=== PATIENT | male | born 1945 | race Caucasian/White ===

== ENCOUNTER 2018-08-01 09:45 | Outpatient (REF) | payer OTHER, SELFPAY ==
[2018-08-01 21:10] LABS: HCT 39.6 % (40.0-50.0); HGB 12.9 g/dL (13.5-17.5)
[2018-08-01 21:47] LABS: Iron 51 ug/dL (50-175); Total Iron Binding Capacity 272 ug/dL (250-450); Transferrin Sat 19 % (20-55)
[2018-08-01 21:58] LABS: Cholesterol 132 mg/dL (50-200); Ferritin 47 ng/mL (8-388); Glucose 103 mg/dL (70-100); HDL Cholesterol 45 mg/dL (40-60); LDL CHOLESTEROL 78 mg/dL (<100); Triglyceride 50 mg/dL (30-150)
== END 2018-08-01 10:05 ==
LOC: NCHCN 09:45
PROVIDERS: PCP Internal Medicine; Visit Provider Internal Medicine
DX: I25.10 Atherosclerotic heart disease of native coronary artery without angina pectoris (principal); D50.9 Iron deficiency anemia, unspecified; I10 Essential (primary) hypertension; Z95.2 Presence of prosthetic heart valve; Z79.01 Long term (current) use of anticoagulants
CPT/HCPCS: 80061; 82947; 83721; 82728; 83540; 83550; 85014; 85018

== ENCOUNTER 2018-12-11 16:15 | Outpatient (REF) | payer OTHER, SELFPAY ==
[2018-12-11 21:28] LABS: Iron 49 ug/dL (50-175)
== END 2018-12-11 16:35 ==
LOC: NCHCN 16:15
PROVIDERS: PCP Internal Medicine; Visit Provider Family Medicine
DX: D50.9 Iron deficiency anemia, unspecified (principal)
CPT/HCPCS: 83540

== ENCOUNTER 2019-03-09 15:02 | Outpatient (REF) | payer OTHER, SELFPAY ==
[2019-03-09 22:10] LABS: Anion Gap 7.1 mmol/L (3-11); BUN 25 mg/dL (7-18); CO2 24.9 mmol/L (21.0-32.0); Calcium 11.3 mg/dL (8.5-10.1); Chloride 106 mmol/L (98-107); Estimated GFR 54.26 (mL/min/1.73m2); Glucose 104 mg/dL (70-100); Potassium 4.1 mmol/L (3.5-5.1); Sodium 138 mmol/L (136-145)
[2019-03-09 22:44] LABS: Vitamin D 25 Total 16.3 ng/ml (30-100)
[2019-03-11 09:48] LABS: Parathyroid Hormone,Intact 227 pg/ml (19-88)
== END 2019-03-09 15:22 ==
LOC: NCHCN 15:02
PROVIDERS: PCP Internal Medicine; Visit Provider Internal Medicine
DX: E83.52 Hypercalcemia (principal)
CPT/HCPCS: 80048; 82306; 83970

== ENCOUNTER 2019-03-26 17:45 | Outpatient (REF) | payer OTHER, SELFPAY ==
[2019-03-27 12:24] LABS: Abs Immature Grans 0.02 k/cumm (0.0-0.09); Absolute Basophil Count 0.03 k/cumm (0.0-0.2); Absolute Eosinophil Count 0.14 k/cumm (0.0-0.7); Absolute Lymphocyte Count 1.37 k/cumm (1.2-3.4); Absolute Monocyte Count 0.71 k/cumm (0.11-0.7); Absolute Neutrophil Count 5.78 k/cumm (1.2-6.7); Basophils % 0.4; Eosinophils % 1.7; HCT 36.8 % (40.0-50.0); HGB 11.9 g/dL (13.5-17.5); Immature Grans % 0.2; Mean Corp. HGB Concentration 32.3 g/dL (32.0-36.0); Mean Corpuscular Volume 86.6 fL (80-95); Monocytes % 8.8; Neutrophils % 71.9; RBC 4.25 m/cumm (4.50-6.00); RBC Distribution Width 15.5 % (11.8-14.1); White Blood Cell Count 8.05 k/cumm (4.4-10.8)
[2019-03-27 12:52] LABS: Ferritin 13 ng/mL (8-388)
[2019-03-27 13:10] LABS: Platelet Count 118 x1000/uL (130-400)
== END 2019-03-26 18:05 ==
LOC: NCHCN 17:45
PROVIDERS: PCP Internal Medicine; Visit Provider Internal Medicine
DX: D50.9 Iron deficiency anemia, unspecified (principal)
CPT/HCPCS: 82728; 85025

== ENCOUNTER 2019-04-23 10:06 | Outpatient (REF) | payer OTHER, SELFPAY ==
[2019-04-23 21:31] LABS: Prothrombin Time 42.5 sec (9.3-11.0)
[2019-04-23 22:37] LABS: INR 4.2 (0.9-1.1)
== END 2019-04-23 10:26 ==
LOC: NCHCN 10:06
PROVIDERS: PCP Internal Medicine; Visit Provider Internal Medicine
DX: I25.10 Atherosclerotic heart disease of native coronary artery without angina pectoris (principal); Z95.2 Presence of prosthetic heart valve; Z79.01 Long term (current) use of anticoagulants
CPT/HCPCS: 85610

== ENCOUNTER 2019-05-15 10:23 | Outpatient (REF) | payer OTHER, SELFPAY ==
[2019-05-15 20:58] LABS: HCT 38.3 % (40.0-50.0); HGB 12.5 g/dL (13.5-17.5)
[2019-05-15 21:36] LABS: Ferritin 46 ng/mL (8-388)
== END 2019-05-15 10:43 ==
LOC: NCHCN 10:23
PROVIDERS: PCP Internal Medicine; Visit Provider Internal Medicine
DX: D50.9 Iron deficiency anemia, unspecified (principal)
CPT/HCPCS: 82728; 85014; 85018

== ENCOUNTER 2019-07-24 08:18 | Outpatient (REF) | payer OTHER, SELFPAY ==
[2019-07-24 21:33] LABS: Abs Immature Grans 0.05 k/cumm (0.0-0.09); Absolute Basophil Count 0.03 k/cumm (0.0-0.2); Absolute Eosinophil Count 0.14 k/cumm (0.0-0.7); Absolute Lymphocyte Count 1.31 k/cumm (1.2-3.4); Absolute Monocyte Count 0.87 k/cumm (0.11-0.7); Absolute Neutrophil Count 6.89 k/cumm (1.2-6.7); Basophils % 0.3; Eosinophils % 1.5; HCT 37.8 % (40.0-50.0); HGB 12.1 g/dL (13.5-17.5); Immature Grans % 0.5; Lymphocytes % 14.1; Mean Corpuscular Hemoglobin 28.5 pg (27.0-33.0); Mean Corpuscular Volume 89.2 fL (80-95); Mean Platelet Volume 12.9 fL (8.0-11.0); Monocytes % 9.4; Neutrophils % 74.2; RBC 4.24 m/cumm (4.50-6.00); RBC Distribution Width 15.5 % (11.8-14.1); White Blood Cell Count 9.29 k/cumm (4.4-10.8)
[2019-07-24 21:59] LABS: Platelet Count 149 x1000/uL (130-400)
[2019-07-24 22:15] LABS: Ferritin 48 ng/mL (8-388)
[2019-07-27 09:26] LABS: Vitamin D 25 Total 28.4 ng/ml (30-100)
== END 2019-07-24 08:38 ==
LOC: NCHCN 08:18
PROVIDERS: PCP Internal Medicine; Visit Provider Internal Medicine
DX: R53.83 Other fatigue (principal); Z86.39 Personal history of other endocrine, nutritional and metabolic disease; E55.9 Vitamin D deficiency, unspecified
CPT/HCPCS: 82306; 82728; 85025

== ENCOUNTER 2019-08-05 09:41 | Outpatient (REF) | payer OTHER, SELFPAY ==
[2019-08-05 21:58] LABS: INR 3.7 (0.9-1.1); Prothrombin Time 36.2 sec (9.3-11.0)
== END 2019-08-05 10:01 ==
LOC: NCHCN 09:41
PROVIDERS: PCP Internal Medicine; Visit Provider Internal Medicine
DX: I48.0 Paroxysmal atrial fibrillation (principal); Z79.01 Long term (current) use of anticoagulants
CPT/HCPCS: 85610

== ENCOUNTER 2019-09-29 10:42 | Outpatient (REF) | payer OTHER, SELFPAY ==
[2019-09-29 21:15] LABS: Prothrombin Time 41.6 sec (9.3-11.0)
[2019-09-29 21:42] LABS: INR 4.3 (0.9-1.1)
== END 2019-09-29 11:02 ==
LOC: NCHCN 10:42
PROVIDERS: PCP Internal Medicine; Visit Provider Internal Medicine
DX: I25.10 Atherosclerotic heart disease of native coronary artery without angina pectoris (principal); I48.0 Paroxysmal atrial fibrillation; Z79.01 Long term (current) use of anticoagulants
CPT/HCPCS: 85610

== ENCOUNTER 2019-10-20 09:33 | Outpatient (REF) | payer OTHER, SELFPAY ==
[2019-10-20 17:11] LABS: Abs Immature Grans 0.03 k/cumm (0.0-0.09); Absolute Basophil Count 0.03 k/cumm (0.0-0.2); Absolute Eosinophil Count 0.24 k/cumm (0.0-0.7); Absolute Lymphocyte Count 1.18 k/cumm (1.2-3.4); Absolute Monocyte Count 1.07 k/cumm (0.11-0.7); Absolute Neutrophil Count 5.85 k/cumm (1.2-6.7); Basophils % 0.4; Eosinophils % 2.9; HGB 9.4 g/dL (13.5-17.5); Immature Grans % 0.4; Mean Corp. HGB Concentration 31.3 g/dL (32.0-36.0); Mean Corpuscular Hemoglobin 29.2 pg (27.0-33.0); Mean Corpuscular Volume 93.2 fL (80-95); Mean Platelet Volume 13.1 fL (8.0-11.0); Monocytes % 12.7; Neutrophils % 69.6; Platelet Count 147 x1000/uL (130-400); RBC 3.22 m/cumm (4.50-6.00); RBC Distribution Width 14.9 % (11.8-14.1)
[2019-10-20 17:34] LABS: Anion Gap 10.1 mmol/L (3-11); BUN 25 mg/dL (7-18); CO2 25.9 mmol/L (21.0-32.0); CREATININE 1.71 mg/dL (0.70-1.30); Calcium 8.3 mg/dL (8.5-10.1); Calculated LDL 61 mg/dL; Chloride 109 mmol/L (98-107); Cholesterol 113 mg/dL (<200); Estimated GFR 39.44 (mL/min/1.73m2); Ferritin 34 ng/mL (26-388); Glucose 100 mg/dL (74-106); HDL Cholesterol 39 mg/dL (40-60); Potassium 4.3 mmol/L (3.5-5.1); Sodium 145 mmol/L (136-145); Triglyceride 65 mg/dL (<150)
== END 2019-10-20 09:53 ==
LOC: NCHCN 09:33
PROVIDERS: PCP Internal Medicine; Visit Provider Internal Medicine
DX: D50.9 Iron deficiency anemia, unspecified (principal); I10 Essential (primary) hypertension; E21.0 Primary hyperparathyroidism
CPT/HCPCS: 80048; 80061; 82728; 85025; 85610

== ENCOUNTER 2019-10-22 14:15 | Outpatient (REF) | payer OTHER, SELFPAY ==
[2019-10-22 21:20] LABS: INR 2.1 (0.9-1.1)
== END 2019-10-22 14:35 ==
LOC: NCHCN 14:15
PROVIDERS: PCP Internal Medicine; Visit Provider Internal Medicine
DX: I48.0 Paroxysmal atrial fibrillation (principal); Z79.01 Long term (current) use of anticoagulants
CPT/HCPCS: 85610

== ENCOUNTER 2019-10-27 08:43 | Outpatient (REF) | payer OTHER, SELFPAY ==
[2019-10-27 21:23] LABS: ALT 20 U/L (16-63); AST 13 U/L (15-37); Albumin 3.4 g/dL (3.4-5.0); Alkaline Phosphatase 72 U/L (46-116); Anion Gap 8.4 mmol/L (3-11); BUN 30 mg/dL (7-18); Bilirubin, Total 0.3 mg/dL (0.2-1.0); CO2 26.6 mmol/L (21.0-32.0); CREATININE 1.57 mg/dL (0.70-1.30); Calcium 8.8 mg/dL (8.5-10.1); Chloride 108 mmol/L (98-107); Estimated GFR 43.52 (mL/min/1.73m2); Glucose 103 mg/dL (74-106); Iron 30 ug/dL (65-175); Potassium 4.5 mmol/L (3.5-5.1); Sodium 143 mmol/L (136-145); Total Iron Binding Capacity 271 ug/dL (250-450); Total Protein 6.2 g/dL (6.4-8.2); Transferrin Sat 11 % (20-55)
[2019-10-30 12:42] LABS: IgA 107 mg/dL (85-499); Tissue Transglutaminase IgA <1.2 U/mL (<4.0)
== END 2019-10-27 09:03 ==
LOC: NCHCN 08:43
PROVIDERS: PCP Internal Medicine; Visit Provider Internal Medicine
DX: D50.9 Iron deficiency anemia, unspecified (principal); N18.3 Chronic kidney disease, stage 3 (moderate)
CPT/HCPCS: 80053; 82784; 83516; 83540; 83550

== ENCOUNTER 2019-11-30 07:55 | Outpatient (REF) | payer OTHER, SELFPAY | END 2019-11-30 08:15 | LOC: NCHCN 07:55 | PROVIDERS: PCP Internal Medicine; Visit Provider Internal Medicine | DX: D50.9 Iron deficiency anemia, unspecified (principal) | CPT/HCPCS: 85014; 85018 ==

== ENCOUNTER 2020-01-18 09:16 | Outpatient (REF) | payer OTHER, SELFPAY ==
[2020-01-18 20:54] LABS: HCT 30.4 % (40.0-50.0); HGB 9.7 g/dL (13.5-17.5); Mean Corp. HGB Concentration 31.9 g/dL (32.0-36.0); Mean Corpuscular Hemoglobin 30.3 pg (27.0-33.0); Mean Platelet Volume 13.1 fL (8.0-11.0); Platelet Count 124 x1000/uL (130-400); RBC Distribution Width 15.3 % (11.8-14.1); White Blood Cell Count 8.05 k/cumm (4.4-10.8)
[2020-01-18 21:04] LABS: Iron 146 ug/dL (65-175)
[2020-01-18 21:18] LABS: Ferritin 32 ng/mL (26-388)
== END 2020-01-18 09:36 ==
LOC: NCHCN 09:16
PROVIDERS: PCP Internal Medicine; Visit Provider Internal Medicine
DX: D50.9 Iron deficiency anemia, unspecified (principal)
CPT/HCPCS: 85027; 82728; 83540

== ENCOUNTER 2020-04-04 08:22 | Outpatient (REF) | payer OTHER, SELFPAY ==
[2020-04-04 20:35] LABS: INR 3.8 (0.9-1.1); Prothrombin Time 36.8 sec (9.3-11.0)
== END 2020-04-04 08:42 ==
LOC: NCHCN 08:22
PROVIDERS: PCP Internal Medicine; Visit Provider Internal Medicine
DX: I48.0 Paroxysmal atrial fibrillation (principal); Z79.01 Long term (current) use of anticoagulants
CPT/HCPCS: 85610